=== PATIENT | female | born 1960 | race Caucasian/White ===

== ENCOUNTER 2024-03-27 18:23 | Emergency (ER) | payer OTHER ==
[~2024-03-27] VITALS: Ht 165.1 cm; Wt 58.2 kg
[2024-03-27 19:29] LABS: BASOPHILS % (AUTO) 0.7 % (0-1); EOSINOPHILS # (AUTO) 0.1 X10'3 (0-0.9); EOSINOPHILS % (AUTO) 1.6 % (0-6); HEMATOCRIT 46.3 % (35.0-45.0); HEMOGLOBIN 15.6 g/dl (12.0-16.0); LYMPHOCYTES # (AUTO) 1.8 X10'3 (1.1-4.8); LYMPHOCYTES % (AUTO) 28.8 % (21-51); MEAN CORPUSCULAR HEMOGLOBIN 31.7 PG (27.0-31.0); MEAN CORPUSCULAR HGB CONC 33.7 g/dL (33.0-36.5); MEAN PLATELET VOLUME 7.9 FL (7.4-10.4); MONOCYTES # (AUTO) 0.5 X10'3 (0-0.9); MONOCYTES % (AUTO) 7.5 % (2-12); NEUTROPHILS # (AUTO) 3.7 X10'3 (1.8-7.7); NEUTROPHILS % (AUTO) 61.4 % (42-75); PLATELET COUNT 176 X10'3 (140-440); RED BLOOD COUNT 4.92 X10'6 (4.20-5.60); RED CELL DISTRIBUTION WIDTH 13.1 % (11.5-14.5); WHITE BLOOD COUNT 6.1 X10'3 (4.5-11.0)
[2024-03-27 19:41] LABS: ALANINE AMINOTRANSFERASE 16 U/L (12-78); ALBUMIN 3.1 G/DL (3.4-5.0); ALKALINE PHOSPHATASE 75 IU/L (46-116); ANION GAP 6 (8-16); ASPARTATE AMINO TRANSFERASE 22 U/L (10-37); BILIRUBIN,TOTAL 0.7 MG/DL (0.1-1.0); BLOOD UREA NITROGEN 6 MG/DL (7-18); BUN/CREATININE RATIO 6.4 (10.0-20.0); CALCIUM 8.5 MG/DL (8.5-10.1); CHLORIDE 103 MMOL/L (99-107); CREATININE 0.94 MG/DL (0.40-0.90); GLUCOSE 92 MG/DL (70-104); LIPASE 19 U/L (16-77); POTASSIUM 3.7 MMOL/L (3.5-5.1); SODIUM 135 MMOL/L (135-145); TOTAL CARBON DIOXIDE 26.3 MMOL/L (24-32); TOTAL PROTEIN 6.1 G/DL (6.4-8.2); eCRCL 55 ML/MIN; eGFR 60 ML/MIN
[2024-03-27 21:37] VITALS: TEMP 97.9
[2024-03-27 22:47] VITALS: BP 126/68; PULSE 81; O2SAT 98
[2024-03-27] MEDS ORDERED: METO10TA3 PO (23:46)
[2024-03-27] MEDS: haloperidol lactate 5mg/ml inj IM ONE (23:48)
[2024-03-28 00:23] VITALS: RESP 18
== END 2024-03-28 00:25 | disposition home or self-care (01) ==
LOC: ER 18:23
DX: R11.15 Cyclical vomiting syndrome unrelated to migraine (principal); I10 Essential (primary) hypertension; F17.200 Nicotine dependence, unspecified, uncomplicated; Z85.038 Personal history of other malignant neoplasm of large intestine; Z88.1 Allergy status to other antibiotic agents
CPT/HCPCS: 36415; 80053; 83690; 85025; 96372; 99283; J1630

== ENCOUNTER 2024-04-20 19:32 | Inpatient (IN) | payer OTHER ==
[~2024-04-20] VITALS: Ht 165.1 cm; Wt 74.5 kg
[~2024-04-20 19:32] MED LIST: METO10TA3 PO
[2024-04-20 22:03] LABS: BASOPHILS % (AUTO) 1.1 % (0-1); EOSINOPHILS # (AUTO) 0.2 X10'3 (0-0.9); EOSINOPHILS % (AUTO) 3.4 % (0-6); HEMATOCRIT 37.2 % (35.0-45.0); HEMOGLOBIN 12.7 g/dl (12.0-16.0); LYMPHOCYTES # (AUTO) 1.2 X10'3 (1.1-4.8); LYMPHOCYTES % (AUTO) 25.9 % (21-51); MEAN CORPUSCULAR HEMOGLOBIN 32.7 PG (27.0-31.0); MEAN CORPUSCULAR HGB CONC 34.1 g/dL (33.0-36.5); MEAN CORPUSCULAR VOLUME 95.8 FL (78-98); MEAN PLATELET VOLUME 7.1 FL (7.4-10.4); MONOCYTES # (AUTO) 0.4 X10'3 (0-0.9); NEUTROPHILS # (AUTO) 2.8 X10'3 (1.8-7.7); NEUTROPHILS % (AUTO) 60.6 % (42-75); PLATELET COUNT 167 X10'3 (140-440); RED BLOOD COUNT 3.88 X10'6 (4.20-5.60); RED CELL DISTRIBUTION WIDTH 14.7 % (11.5-14.5); WHITE BLOOD COUNT 4.6 X10'3 (4.5-11.0)
[2024-04-20 22:29] LABS: ALANINE AMINOTRANSFERASE 14 U/L (12-78); ALBUMIN 2.2 G/DL (3.4-5.0); ALBUMIN/GLOBULIN RATIO 0.8 (1.1-1.5); ALKALINE PHOSPHATASE 67 IU/L (46-116); ANION GAP 11 (8-16); ASPARTATE AMINO TRANSFERASE 29 U/L (10-37); BILIRUBIN,TOTAL 0.6 MG/DL (0.1-1.0); BLOOD UREA NITROGEN 2 MG/DL (7-18); BUN/CREATININE RATIO 2.8 (10.0-20.0); CALCIUM 7.7 MG/DL (8.5-10.1); CHLORIDE 108 MMOL/L (99-107); CREATININE 0.72 MG/DL (0.40-0.90); GLUCOSE 68 MG/DL (70-104); SODIUM 141 MMOL/L (135-145); TOTAL CARBON DIOXIDE 21.7 MMOL/L (24-32); eCRCL 72 ML/MIN; eGFR 82 ML/MIN
[2024-04-20] MEDS: metoclopramide 5 mg/ml inj IV ONE (23:32)
[2024-04-20] MEDS: morphine 4 MG/ML inj SYRINge IV ONE (23:49)
[2024-04-21] VITALS (25 sets, daily range): BP systolic 86–140; BP diastolic 26–72; PULSE 90–119; RESP 13–27; TEMP 97.1–97.9; O2SAT 92–100
[2024-04-21] MEDS ORDERED: acetaminophen 325mg tablet PO PRN (00:30)
[2024-04-21] MEDS ORDERED: magnesium Cl slow-release 64mg tablet PO PRN (00:30)
[2024-04-21] MEDS ORDERED: magnesium sulf-water 4G/100mL 100 ML IV PRN (00:30)
[2024-04-21] MEDS ORDERED: mag hydrox/Alum hydrox/simeth 30ml oral suspension PO PRN (00:30)
[2024-04-21] MEDS ORDERED: potassium Cl 20 mEq SR tablet PO PRN ×2 (00:30)
[2024-04-21] MEDS ORDERED: magnesium sulf-water 2g/50mL 50 ML IV PRN (00:30)
[2024-04-21 00:44] LABS: BILIRUBIN,URINE NEGATIVE (Neg); CLARITY,URINE CLEAR (Clear); COLOR,URINE YELLOW (Yellow); GLUCOSE, URINE NEGATIVE (Neg); KETONES,URINE >=80 mg/dl (Neg); LEUKOCYTE ESTERASE ,URINE NEGATIVE (Neg); NITRITES, URINE NEGATIVE (Neg); OCCULT BLOOD,URINE MODERATE (Neg); PROTEIN,URINE TRACE mg/dl (Neg); UROBILINOGEN,URINE 0.2 E.U/dL (0.2-1.0)
[2024-04-21 00:49] LABS: UA COLLECTION TYPE CLN CATCH MIDSTREAM
[2024-04-21 00:50] LABS: BACTERIA,URINE NONE SEEN /HPF (Neg); SQUAMOUS EPITHELIAL CELL,UR FEW /LPF (FEW); WBC,URINE 0-4 /HPF (0-4)
[2024-04-21 00:55] LABS: URINE AMPHETAMINE SCREEN NEGATIVE (Neg); URINE BARBITUATE SCREEN NEGATIVE (Neg); URINE BENZODIAZEPINES SCREEN NEGATIVE (Neg); URINE CANNABINOID SCREEN NEGATIVE (Neg); URINE COCAINE SCREEN NEGATIVE (Neg); URINE METHADONE SCREEN NEGATIVE (Neg); URINE OPIATE SCREEN POSITIVE (Neg); URINE PHENCYCLIDINE SCREEN NEGATIVE (Neg)
[2024-04-21] MEDS: ringers solution, lacted 1,000 ML IV SCH ×2 (01:10→17:40)
[2024-04-21 01:18] LABS: LIPASE 24 U/L (16-77)
[2024-04-21] MEDS: ondansetron/PF 4mg/2ml inj IV PRN ×2 (06:03→19:48)
[2024-04-21] MEDS: K and/or MAG REPLACEMENT MC SCH (07:01)
[2024-04-21] MEDS: docusate sod 100mg capsule PO SCH (07:01)
[2024-04-21] MEDS: enoxaparin 40mg/0.4ml syringe SUBCUT SCH (07:51)
[2024-04-21] MEDS: acetaminophen 325mg tablet PO PRN (08:49)
[2024-04-21] MEDS: normal saline 1000ml 1,000 ML IV SCH (12:47)
[2024-04-21 13:57] LABS: PRE OP INR 1.2 INR; PRE OP PROTIME 12.8 SECONDS (9.0-12.0)
[2024-04-21] MEDS: dextrose 50%-water 50ml dispensing syringe IV ONE ×2 (15:16→15:22)
[2024-04-21] MEDS ORDERED: phenazopyridine 100mg tablet PO PRN (16:25)
[2024-04-21] MEDS ORDERED: iohexol 300 MG/1 ML 50ml polymer ONE (16:27)
[2024-04-21] MEDS ORDERED: morphine 4 MG/ML inj SYRINge IV PRN (16:30)
[2024-04-21] MEDS ORDERED: morphine 2 MG/ML inj. syringe IV PRN (16:30)
[2024-04-21] MEDS ORDERED: meperidine/PF 25mg/ml syringe IV PRN ×3 (16:30)
[2024-04-21] MEDS ORDERED: proCHLORperazine 10 MG/2 ml inj IV PRN (16:30)
[2024-04-21] MEDS ORDERED: fentaNYL/PF 50MCG/1 ML 2ML syringe ONE (16:34)
[2024-04-21] MEDS ORDERED: midazolam 1 mg/ML 2ml injection ONE (16:34)
[2024-04-21] MEDS ORDERED: propofol inj 20 ML IV ONE (16:34)
[2024-04-21] MEDS ORDERED: sevoflurane 250ml liquid IH ONE (16:44)
[2024-04-21] MEDS ORDERED: ceFAZolin 1000mg inj ONE ×2 (16:55)
[2024-04-21] MEDS ORDERED: morphine/NS 1 mg/ml 50ml PCA 50 ML IV ONE (21:10)
[2024-04-21] MEDS: morphine 2 MG/ML inj. syringe IV PRN (22:32)
[2024-04-22] VITALS (8 sets, daily range): BP systolic 81–127; BP diastolic 40–67; PULSE 105–129; RESP 13–18; TEMP 98.1–103.1; O2SAT 93–100
[2024-04-22] MEDS: ceFAZolin/D5W- 1GM premix 50 ML IV SCH (00:34)
[2024-04-22] MEDS ORDERED: glucagon, human recombinant 1mg kit SUBCUT PRN (06:10)
[2024-04-22] MEDS ORDERED: DEXTROSE 15 GM of carb/4 tabs (each vial/BOTTLE has 4 tablets) PO PRN ×2 (06:10)
[2024-04-22 06:12] LABS: BASOPHILS % (AUTO) 0.4 % (0-1); EOSINOPHILS # (AUTO) 0.1 X10'3 (0-0.9); EOSINOPHILS % (AUTO) 3.3 % (0-6); HEMOGLOBIN 13.1 g/dl (12.0-16.0); LYMPHOCYTES # (AUTO) 0.6 X10'3 (1.1-4.8); LYMPHOCYTES % (AUTO) 13.2 % (21-51); MEAN CORPUSCULAR HEMOGLOBIN 32.8 PG (27.0-31.0); MEAN CORPUSCULAR HGB CONC 34.4 g/dL (33.0-36.5); MEAN CORPUSCULAR VOLUME 95.4 FL (78-98); MEAN PLATELET VOLUME 7.3 FL (7.4-10.4); MONOCYTES # (AUTO) 0.3 X10'3 (0-0.9); MONOCYTES % (AUTO) 6.9 % (2-12); NEUTROPHILS # (AUTO) 3.2 X10'3 (1.8-7.7); NEUTROPHILS % (AUTO) 76.2 % (42-75); PLATELET COUNT 148 X10'3 (140-440); RED BLOOD COUNT 3.98 X10'6 (4.20-5.60); RED CELL DISTRIBUTION WIDTH 14.6 % (11.5-14.5); WHITE BLOOD COUNT 4.2 X10'3 (4.5-11.0)
[2024-04-22] MEDS: dextrose 50%-water 50ml dispensing syringe IV PRN ×2 (06:14→21:47)
[2024-04-22 06:33] LABS: ALBUMIN 2.1 G/DL (3.4-5.0); ANION GAP 15 (8-16); BLOOD UREA NITROGEN 1 MG/DL (7-18); BUN/CREATININE RATIO 1.2 (10.0-20.0); CALCIUM 8.2 MG/DL (8.5-10.1); CHLORIDE 108 MMOL/L (99-107); CREATININE 0.82 MG/DL (0.40-0.90); GLUCOSE 71 MG/DL (70-104); MAGNESIUM 1.5 MG/DL (1.5-2.4); SODIUM 142 MMOL/L (135-145); TOTAL CARBON DIOXIDE 18.8 MMOL/L (24-32); eCRCL 63 ML/MIN; eGFR 70 ML/MIN
[2024-04-22 06:52] LABS: POTASSIUM 2.8 MMOL/L (3.5-5.1)
[2024-04-22] MEDS ORDERED: acetaminophen 325mg rectal suppository RC PRN ×2 (11:44)
[2024-04-22] MEDS: acetaminophen 325mg rectal suppository RC PRN (12:01)
[2024-04-22] MEDS: potassium Cl 40MEQ/1/2NS 520ml 520 ML IV PRN (12:24)
[2024-04-22 14:19] LABS: BASOPHILS % (AUTO) 0.5 % (0-1); EOSINOPHILS # (AUTO) 0.1 X10'3 (0-0.9); EOSINOPHILS % (AUTO) 1.9 % (0-6); HEMATOCRIT 34.5 % (35.0-45.0); HEMOGLOBIN 11.8 g/dl (12.0-16.0); LYMPHOCYTES # (AUTO) 0.6 X10'3 (1.1-4.8); MEAN CORPUSCULAR HEMOGLOBIN 32.4 PG (27.0-31.0); MEAN CORPUSCULAR HGB CONC 34.2 g/dL (33.0-36.5); MEAN CORPUSCULAR VOLUME 94.9 FL (78-98); MEAN PLATELET VOLUME 7.3 FL (7.4-10.4); MONOCYTES # (AUTO) 0.5 X10'3 (0-0.9); MONOCYTES % (AUTO) 10.6 % (2-12); NEUTROPHILS # (AUTO) 3.4 X10'3 (1.8-7.7); PLATELET COUNT 127 X10'3 (140-440); RED BLOOD COUNT 3.63 X10'6 (4.20-5.60); RED CELL DISTRIBUTION WIDTH 14.9 % (11.5-14.5); WHITE BLOOD COUNT 4.5 X10'3 (4.5-11.0)
[2024-04-22 14:32] LABS: ALBUMIN 1.9 G/DL (3.4-5.0); ANION GAP 10 (8-16); BLOOD UREA NITROGEN 1 MG/DL (7-18); CALCIUM 7.7 MG/DL (8.5-10.1); CHLORIDE 111 MMOL/L (99-107); CREATININE 1.04 MG/DL (0.40-0.90); GLUCOSE 79 MG/DL (70-104); SODIUM 144 MMOL/L (135-145); TOTAL CARBON DIOXIDE 22.7 MMOL/L (24-32); eCRCL 50 ML/MIN; eGFR 54 ML/MIN
[2024-04-22 14:46] LABS: POTASSIUM 2.3 MMOL/L (3.5-5.1)
[2024-04-22] MEDS ORDERED: iohexol 300mg/ml 100ml inj. ONE (17:05)
[2024-04-22] MEDS: dextrose 5%-water 1,000 ML IV SCH (20:26)
[2024-04-22] MEDS ORDERED: dextrose 5%-water 1,000 ML IV SCH (20:30)
[2024-04-22] MEDS: normal saline 1000ml 1,000 ML IVB ONE (20:30)
[2024-04-22] MEDS: CefTRIAXone/D5W-Rocephin 1gm 50 ML IV SCH (22:05)
[2024-04-22] MEDS: dextrose 5%-1/2 normal saline 1,000 ML IV SCH (22:38)
[2024-04-23] VITALS (9 sets, daily range): BP systolic 94–125; BP diastolic 41–54; PULSE 86–123; RESP 13–26; TEMP 97.3–99.4; O2SAT 91–99
[2024-04-23 07:57] LABS: BASOPHILS % (AUTO) 0.9 % (0-1); EOSINOPHILS # (AUTO) 0.1 X10'3 (0-0.9); EOSINOPHILS % (AUTO) 2.9 % (0-6); HEMATOCRIT 34.7 % (35.0-45.0); LYMPHOCYTES # (AUTO) 0.6 X10'3 (1.1-4.8); LYMPHOCYTES % (AUTO) 19.5 % (21-51); MEAN CORPUSCULAR HEMOGLOBIN 32.8 PG (27.0-31.0); MEAN CORPUSCULAR HGB CONC 34.6 g/dL (33.0-36.5); MEAN CORPUSCULAR VOLUME 94.8 FL (78-98); MEAN PLATELET VOLUME 7.7 FL (7.4-10.4); MONOCYTES # (AUTO) 0.5 X10'3 (0-0.9); MONOCYTES % (AUTO) 18.1 % (2-12); NEUTROPHILS # (AUTO) 1.8 X10'3 (1.8-7.7); NEUTROPHILS % (AUTO) 58.6 % (42-75); PLATELET COUNT 106 X10'3 (140-440); RED BLOOD COUNT 3.66 X10'6 (4.20-5.60); RED CELL DISTRIBUTION WIDTH 14.8 % (11.5-14.5)
[2024-04-23 08:14] LABS: ALBUMIN 1.8 G/DL (3.4-5.0); ANION GAP 7 (8-16); BLOOD UREA NITROGEN 1 MG/DL (7-18); BUN/CREATININE RATIO 1.1 (10.0-20.0); CALCIUM 7.5 MG/DL (8.5-10.1); CHLORIDE 112 MMOL/L (99-107); CREATININE 0.94 MG/DL (0.40-0.90); GLUCOSE 144 MG/DL (70-104); MAGNESIUM 1.4 MG/DL (1.5-2.4); SODIUM 142 MMOL/L (135-145); TOTAL CARBON DIOXIDE 23.5 MMOL/L (24-32); eCRCL 55 ML/MIN; eGFR 60 ML/MIN
[2024-04-23 08:28] LABS: POTASSIUM 2.7 MMOL/L (3.5-5.1)
[2024-04-23] MEDS: normal saline 500ml IV soln 500 ML IV SCH (09:38)
[2024-04-23] MEDS: dextrose 5%-1/2 normal saline 1,000 ML IV SCH (09:38)
[2024-04-23] MEDS: normal saline 1000ml 1,000 ML IV SCH (10:33)
[2024-04-23] MEDS: pantoprazole 40MG/NS 100ML BAG 100 ML IV SCH (11:55)
[2024-04-24] VITALS (8 sets, daily range): BP systolic 79–104; BP diastolic 38–86; PULSE 79–132; RESP 18–38; TEMP 97.6–99.8; O2SAT 92–97
[2024-04-24] MEDS: dextrose 5%-water 1,000 ML IV SCH (02:13)
[2024-04-24] MEDS ORDERED: potassium Cl 20 mEq SR tablet PO PRN ×2 (04:30)
[2024-04-24] MEDS ORDERED: magnesium Cl slow-release 64mg tablet PO PRN (04:30)
[2024-04-24 07:30] LABS: ALBUMIN 1.7 G/DL (3.4-5.0); ANION GAP 7 (8-16); BLOOD UREA NITROGEN 1 MG/DL (7-18); BUN/CREATININE RATIO 1.3 (10.0-20.0); CALCIUM 7.4 MG/DL (8.5-10.1); CHLORIDE 109 MMOL/L (99-107); CREATININE 0.76 MG/DL (0.40-0.90); GLUCOSE 91 MG/DL (70-104); MAGNESIUM 1.3 MG/DL (1.5-2.4); SODIUM 139 MMOL/L (135-145); TOTAL CARBON DIOXIDE 22.6 MMOL/L (24-32); eCRCL 68 ML/MIN; eGFR 77 ML/MIN
[2024-04-24 07:34] LABS: POTASSIUM 3.2 MMOL/L (3.5-5.1)
[2024-04-24] MEDS: K and/or MAG REPLACEMENT MC SCH (08:00)
[2024-04-24] MEDS: potassium Cl 40MEQ/1/2NS 520ml 520 ML IV PRN (08:47)
[2024-04-24 09:07] LABS: BASOPHILS % (AUTO) 1.4 % (0-1); EOSINOPHILS # (AUTO) 0.2 X10'3 (0-0.9); EOSINOPHILS % (AUTO) 4.6 % (0-6); HEMATOCRIT 32.2 % (35.0-45.0); HEMOGLOBIN 11.3 g/dl (12.0-16.0); LYMPHOCYTES # (AUTO) 0.9 X10'3 (1.1-4.8); MEAN CORPUSCULAR HEMOGLOBIN 32.7 PG (27.0-31.0); MEAN CORPUSCULAR HGB CONC 35.1 g/dL (33.0-36.5); MEAN CORPUSCULAR VOLUME 93.1 FL (78-98); MEAN PLATELET VOLUME 7.4 FL (7.4-10.4); MONOCYTES # (AUTO) 0.5 X10'3 (0-0.9); NEUTROPHILS # (AUTO) 1.9 X10'3 (1.8-7.7); PLATELET COUNT 92 X10'3 (140-440); RED BLOOD COUNT 3.46 X10'6 (4.20-5.60); RED CELL DISTRIBUTION WIDTH 15.1 % (11.5-14.5); WHITE BLOOD COUNT 3.5 X10'3 (4.5-11.0)
[2024-04-24] MEDS: normal saline 500ml IV soln 500 ML IV ONE (16:56)
[2024-04-24] MEDS ORDERED: iohexol 300mg/ml 100ml inj. ONE (18:04)
[2024-04-24] MEDS ORDERED: morphine 2 MG/ML inj. syringe IV PRN (19:30)
[2024-04-24] MEDS ORDERED: furosemide 20 MG/2 ML vial IV SCH (19:30)
[2024-04-24] MEDS: PERFLUTREN PROTEIN-A MICROSPHR (Optison) 0.22 MG/ML 3ML VIAL IV ONE (20:52)
[2024-04-24] MEDS: magnesium sulf-water 4G/100mL 100 ML IV PRN (21:34)
[2024-04-24] MEDS: furosemide 20 MG/2 ML vial IV SCH (21:41)
[2024-04-24] MEDS: metroNIDAZOLE-Flagyl 500mg/NS 100 ML IV SCH (23:15)
[2024-04-25] VITALS (9 sets, daily range): BP systolic 74–125; BP diastolic 37–97; PULSE 17–126; RESP 20–40; TEMP 97.3–101.8; O2SAT 90–97
[2024-04-25] MEDS: magnesium sulf-water 2g/50mL 50 ML IV PRN (01:39)
[2024-04-25] MEDS: normal saline 1000ml 1,000 ML IV ONE (06:40)
[2024-04-25 07:04] LABS: BASOPHILS % (AUTO) 0.7 % (0-1); EOSINOPHILS # (AUTO) 0.1 X10'3 (0-0.9); EOSINOPHILS % (AUTO) 3.1 % (0-6); HEMATOCRIT 32.5 % (35.0-45.0); HEMOGLOBIN 11.3 g/dl (12.0-16.0); LYMPHOCYTES # (AUTO) 0.8 X10'3 (1.1-4.8); LYMPHOCYTES % (AUTO) 24.2 % (21-51); MEAN CORPUSCULAR HEMOGLOBIN 32.9 PG (27.0-31.0); MEAN CORPUSCULAR HGB CONC 34.8 g/dL (33.0-36.5); MEAN CORPUSCULAR VOLUME 94.5 FL (78-98); MEAN PLATELET VOLUME 8.4 FL (7.4-10.4); MONOCYTES # (AUTO) 0.6 X10'3 (0-0.9); MONOCYTES % (AUTO) 18.8 % (2-12); NEUTROPHILS # (AUTO) 1.7 X10'3 (1.8-7.7); NEUTROPHILS % (AUTO) 53.2 % (42-75); PLATELET COUNT 89 X10'3 (140-440); RED BLOOD COUNT 3.44 X10'6 (4.20-5.60); RED CELL DISTRIBUTION WIDTH 15.2 % (11.5-14.5); WHITE BLOOD COUNT 3.1 X10'3 (4.5-11.0)
[2024-04-25 07:17] LABS: ALBUMIN 1.6 G/DL (3.4-5.0); ANION GAP 6 (8-16); BLOOD UREA NITROGEN 2 MG/DL (7-18); BUN/CREATININE RATIO 1.9 (10.0-20.0); CALCIUM 7.2 MG/DL (8.5-10.1); CHLORIDE 107 MMOL/L (99-107); CREATININE 1.05 MG/DL (0.40-0.90); GLUCOSE 106 MG/DL (70-104); MAGNESIUM 2.8 MG/DL (1.5-2.4); PRO BRAIN NATRIURETIC PEPTIDE 785 PG/ML (0-125); SODIUM 137 MMOL/L (135-145); TOTAL CARBON DIOXIDE 23.7 MMOL/L (24-32); eCRCL 49 ML/MIN; eGFR 53 ML/MIN
[2024-04-25 07:21] LABS: POTASSIUM 2.6 MMOL/L (3.5-5.1)
[2024-04-25] MEDS: potassium CL 20mEq in D5-1/2NS 1,000 ML IV SCH (11:59)
[2024-04-26] VITALS (7 sets, daily range): BP systolic 75–108; BP diastolic 37–56; PULSE 82–125; RESP 12–30; TEMP 96.7–98.6; O2SAT 90–95
[2024-04-26 04:07] LABS: EOSINOPHILS # (AUTO) 0.3 X10'3 (0-0.9); HEMATOCRIT 32.6 % (35.0-45.0); HEMOGLOBIN 11.4 g/dl (12.0-16.0); MEAN CORPUSCULAR HEMOGLOBIN 32.5 PG (27.0-31.0); NEUTROPHILS # (AUTO) 1.4 X10'3 (1.8-7.7); RED BLOOD COUNT 3.51 X10'6 (4.20-5.60)
[2024-04-26 04:09] LABS: BASOPHILS % (AUTO) 1.2 % (0-1); EOSINOPHILS % (AUTO) 8.8 % (0-6); LYMPHOCYTES # (AUTO) 0.8 X10'3 (1.1-4.8); LYMPHOCYTES % (AUTO) 26.3 % (21-51); MEAN CORPUSCULAR VOLUME 92.8 FL (78-98); MEAN PLATELET VOLUME 8.7 FL (7.4-10.4); MONOCYTES # (AUTO) 0.5 X10'3 (0-0.9); MONOCYTES % (AUTO) 16.4 % (2-12); NEUTROPHILS % (AUTO) 47.3 % (42-75); PLATELET COUNT 79 X10'3 (140-440); RED CELL DISTRIBUTION WIDTH 15.1 % (11.5-14.5)
[2024-04-26 04:11] LABS: ALBUMIN 1.6 G/DL (3.4-5.0); ANION GAP 7 (8-16); BLOOD UREA NITROGEN 1 MG/DL (7-18); BUN/CREATININE RATIO 1.2 (10.0-20.0); CALCIUM 6.6 MG/DL (8.5-10.1); CHLORIDE 107 MMOL/L (99-107); CREATININE 0.85 MG/DL (0.40-0.90); GLUCOSE 151 MG/DL (70-104); MAGNESIUM 1.8 MG/DL (1.5-2.4); SODIUM 140 MMOL/L (135-145); TOTAL CARBON DIOXIDE 25.6 MMOL/L (24-32); eCRCL 61 ML/MIN; eGFR 68 ML/MIN
[2024-04-26 04:48] LABS: POTASSIUM 2.7 MMOL/L (3.5-5.1)
[2024-04-26] MEDS: ziprasidone IM 20mg inj **IM only IM ONE (12:40)
[2024-04-26] MEDS ORDERED: vancomycin inj 1,000 MG in normal saline 250ml IV soln 250 ML IV ONE (15:15)
[2024-04-26] MEDS: furosemide 20 MG/2 ML vial IV ONE (15:15)
[2024-04-26] MEDS: albumin (human) 25% 100 ML IV solution IV ONE (19:57)
[2024-04-26] MEDS: VANCOMYCIN 1,500MG in normal saline IV soln 300 ML IV ONE (21:00)
[2024-04-26] MEDS: VANCOMYCIN 1GM 200ML H20 (PEG) 200 ML IV SCH (21:23)
[2024-04-26 22:53] LABS: BASOPHILS % (AUTO) 1.6 % (0-1); EOSINOPHILS # (AUTO) 0.1 X10'3 (0-0.9); HEMATOCRIT 28.6 % (35.0-45.0); HEMOGLOBIN 9.5 g/dl (12.0-16.0); LYMPHOCYTES # (AUTO) 0.5 X10'3 (1.1-4.8); LYMPHOCYTES % (AUTO) 20.8 % (21-51); MEAN CORPUSCULAR HEMOGLOBIN 32.3 PG (27.0-31.0); MEAN CORPUSCULAR HGB CONC 33.2 g/dL (33.0-36.5); MEAN CORPUSCULAR VOLUME 97.3 FL (78-98); MEAN PLATELET VOLUME 8.7 FL (7.4-10.4); MONOCYTES # (AUTO) 0.4 X10'3 (0-0.9); MONOCYTES % (AUTO) 17.6 % (2-12); NEUTROPHILS # (AUTO) 1.4 X10'3 (1.8-7.7); RED BLOOD COUNT 2.94 X10'6 (4.20-5.60); RED CELL DISTRIBUTION WIDTH 16.1 % (11.5-14.5); WHITE BLOOD COUNT 2.5 X10'3 (4.5-11.0)
[2024-04-26 23:07] LABS: PLATELET COUNT 41 X10'3 (140-440)
[2024-04-26 23:10] LABS: ALANINE AMINOTRANSFERASE 46 U/L (12-78); ALBUMIN 2.6 G/DL (3.4-5.0); ALBUMIN/GLOBULIN RATIO 1.4 (1.1-1.5); ALKALINE PHOSPHATASE 42 IU/L (46-116); ANION GAP 7 (8-16); ASPARTATE AMINO TRANSFERASE 138 U/L (10-37); BILIRUBIN,TOTAL 0.8 MG/DL (0.1-1.0); BLOOD UREA NITROGEN 2 MG/DL (7-18); BUN/CREATININE RATIO 2.6 (10.0-20.0); CALCIUM 6.8 MG/DL (8.5-10.1); CHLORIDE 108 MMOL/L (99-107); CREATININE 0.77 MG/DL (0.40-0.90); GLUCOSE 124 MG/DL (70-104); MAGNESIUM 1.8 MG/DL (1.5-2.4); POTASSIUM 3.7 MMOL/L (3.5-5.1); SODIUM 139 MMOL/L (135-145); TOTAL CARBON DIOXIDE 23.6 MMOL/L (24-32); TOTAL PROTEIN 4.4 G/DL (6.4-8.2); eCRCL 67 ML/MIN; eGFR 76 ML/MIN
[2024-04-27] VITALS (22 sets, daily range): BP systolic 76–119; BP diastolic 25–60; PULSE 87–109; RESP 18–32; TEMP 96; O2SAT 93–100
[2024-04-27] MEDS: pantoprazole 40 MG vial IV SCH (03:38)
[2024-04-27 06:45] LABS: HEMATOCRIT 28.9 % (35.0-45.0); MEAN PLATELET VOLUME 9.2 FL (7.4-10.4); PLATELET COUNT 64 X10'3 (140-440)
[2024-04-27 06:47] LABS: HEMOGLOBIN 9.7 g/dl (12.0-16.0); MEAN CORPUSCULAR HGB CONC 33.8 g/dL (33.0-36.5); MEAN CORPUSCULAR VOLUME 94.9 FL (78-98); RED BLOOD COUNT 3.04 X10'6 (4.20-5.60); RED CELL DISTRIBUTION WIDTH 15.9 % (11.5-14.5); WHITE BLOOD COUNT 3.7 X10'3 (4.5-11.0)
[2024-04-27 07:02] LABS: ALANINE AMINOTRANSFERASE 46 U/L (12-78); ALBUMIN 2.2 G/DL (3.4-5.0); ALBUMIN/GLOBULIN RATIO 1.2 (1.1-1.5); ALKALINE PHOSPHATASE 42 IU/L (46-116); ANION GAP 4 (8-16); ASPARTATE AMINO TRANSFERASE 120 U/L (10-37); BASOPHILS % (AUTO) 0.5 % (0-1); BILIRUBIN,TOTAL 0.5 MG/DL (0.1-1.0); BLOOD UREA NITROGEN 2 MG/DL (7-18); BUN/CREATININE RATIO 3.2 (10.0-20.0); CALCIUM 7.2 MG/DL (8.5-10.1); CHLORIDE 107 MMOL/L (99-107); CREATININE 0.62 MG/DL (0.40-0.90); EOSINOPHILS # (AUTO) 0.2 X10'3 (0-0.9); EOSINOPHILS % (AUTO) 6.2 % (0-6); GLUCOSE 178 MG/DL (70-104); LYMPHOCYTES # (AUTO) 0.7 X10'3 (1.1-4.8); LYMPHOCYTES % (AUTO) 19.5 % (21-51); MONOCYTES # (AUTO) 0.6 X10'3 (0-0.9); MONOCYTES % (AUTO) 15.7 % (2-12); NEUTROPHILS # (AUTO) 2.2 X10'3 (1.8-7.7); NEUTROPHILS % (AUTO) 58.1 % (42-75); POTASSIUM 3.7 MMOL/L (3.5-5.1); SODIUM 137 MMOL/L (135-145); TOTAL CARBON DIOXIDE 26.5 MMOL/L (24-32); TOTAL PROTEIN 4.1 G/DL (6.4-8.2); eCRCL 84 ML/MIN; eGFR > 90 ML/MIN
[2024-04-27] MEDS ORDERED: rocuronium 10mg/ml inj IV ONE (08:00)
[2024-04-27 09:51] LABS: ABG BASE EXCESS -4.8 mmol/L (-2.0-3.0); ABG HCO3 24.6 mmol/L (21.0-28.0); ABG OXYGEN SATURATION 91.5 % (94.0-98.0); ABG PCO2 (T) 69.9 mmHg (32.0-45.0); ABG PH (T) 7.165 (7.350-7.450); ABG PO2 (T) 67.3 mmHg (83.0-108.0); ALLEN'S TEST Modified; FCOHb 0.5 % (0.5-1.5); FHHb 8.4 % (0.0-5.0); FLOW 15 L/min; FMetHb 0.3 % (0.0-1.5); FO2Hb 90.8 % (94.0-98.0); MODE MASK - NRB
[2024-04-27] MEDS: fentaNYL/PF 50MCG/1 ML 2ML syringe ONE (10:53)
[2024-04-27] MEDS: FENTANYL-0.9 % NACL/PF 100 ML IV SCH (11:26)
[2024-04-27] MEDS: propofol 1000mg/100ml bottle 100 ML IV SCH (11:26)
[2024-04-27] MEDS: methylPREDNISolone sod succ 125mg/2ml vial IV SCH ×2 (11:44→19:53)
[2024-04-27] MEDS: ringers solution, lacted 1,000 ML IV ONE (11:46)
[2024-04-27] MEDS: MEROPENEM 1GM/NACL 50ML IVPB 50 ML IV SCH (12:05)
[2024-04-27] MEDS: NORepinephrine 8mg/ 250ml NS 250 ML IV SCH ×2 (12:10→16:34)
[2024-04-27 12:14] LABS: ABG BASE EXCESS -4.2 mmol/L (-2.0-3.0); ABG HCO3 24.3 mmol/L (21.0-28.0); ABG OXYGEN SATURATION 98.4 % (94.0-98.0); ABG PCO2 (T) 56.2 mmHg (32.0-45.0); ABG PH (T) 7.239 (7.350-7.450); ABG PO2 (T) 112.3 mmHg (83.0-108.0); ALLEN'S TEST POSITIVE; FCOHb 0.1 % (0.5-1.5); FHHb 1.6 % (0.0-5.0); FMetHb 0.3 % (0.0-1.5); MODE VENT - AC; PATIENT TEMPERATURE 34.3; RESPIRATORY RATE 18 b/min; TIDAL VOLUME 350 mL; TOTAL HEMOGLOBIN 10.1 G/dl (12.0-16.0)
[2024-04-27] MEDS: heparin, porcine 5000 units/ml vial SQ SCH (19:53)
[2024-04-28] VITALS (44 sets, daily range): BP systolic 91–129; BP diastolic 30–75; PULSE 73–124; RESP 17–30; O2SAT 90–98
[2024-04-28] MEDS ORDERED: glucagon, human recombinant 1mg kit SUBCUT PRN (00:55)
[2024-04-28] MEDS ORDERED: dextrose 50%-water 50ml dispensing syringe IV PRN ×2 (00:55)
[2024-04-28] MEDS ORDERED: DEXTROSE 15 GM of carb/4 tabs (each vial/BOTTLE has 4 tablets) PO PRN ×2 (00:55)
[2024-04-28 02:35] LABS: BASOPHILS % (AUTO) 0.1 % (0-1); EOSINOPHILS % (AUTO) 0 % (0-6); HEMATOCRIT 33.2 % (35.0-45.0); HEMOGLOBIN 11.3 g/dl (12.0-16.0); LYMPHOCYTES # (AUTO) 0.3 X10'3 (1.1-4.8); LYMPHOCYTES % (AUTO) 4.5 % (21-51); MEAN CORPUSCULAR HEMOGLOBIN 32.2 PG (27.0-31.0); MEAN CORPUSCULAR HGB CONC 33.9 g/dL (33.0-36.5); MEAN CORPUSCULAR VOLUME 94.9 FL (78-98); MEAN PLATELET VOLUME 9.8 FL (7.4-10.4); MONOCYTES # (AUTO) 0.5 X10'3 (0-0.9); MONOCYTES % (AUTO) 6.3 % (2-12); NEUTROPHILS # (AUTO) 6.8 X10'3 (1.8-7.7); NEUTROPHILS % (AUTO) 89.1 % (42-75); PLATELET COUNT 93 X10'3 (140-440); RED CELL DISTRIBUTION WIDTH 16.2 % (11.5-14.5); WHITE BLOOD COUNT 7.7 X10'3 (4.5-11.0)
[2024-04-28] MEDS: vasopressin inj. 40 UNIT in normal saline 50ml IV soln 38 ML IV SCH (02:40)
[2024-04-28] MEDS: INSULIN LISPRO 100 UNIT/ML INSULN.PEN MULTI-DOSE SQ SCH (02:51)
[2024-04-28] MEDS: VANCOMYCIN LEVEL IV ONE (02:55)
[2024-04-28 03:06] LABS: ALANINE AMINOTRANSFERASE 44 U/L (12-78); ALBUMIN 2.2 G/DL (3.4-5.0); ALBUMIN/GLOBULIN RATIO 0.8 (1.1-1.5); ALKALINE PHOSPHATASE 53 IU/L (46-116); ANION GAP 5 (8-16); ASPARTATE AMINO TRANSFERASE 95 U/L (10-37); BILIRUBIN,TOTAL 0.6 MG/DL (0.1-1.0); BLOOD UREA NITROGEN 4 MG/DL (7-18); BUN/CREATININE RATIO 5.1 (10.0-20.0); CALCIUM 7.4 MG/DL (8.5-10.1); CHLORIDE 109 MMOL/L (99-107); CREATININE 0.79 MG/DL (0.40-0.90); GLUCOSE 206 MG/DL (70-104); MAGNESIUM 1.9 MG/DL (1.5-2.4); PHOSPHORUS 1.3 MG/DL (2.3-4.5); POTASSIUM 3.9 MMOL/L (3.5-5.1); SODIUM 141 MMOL/L (135-145); TOTAL CARBON DIOXIDE 26.8 MMOL/L (24-32); TOTAL PROTEIN 4.8 G/DL (6.4-8.2); TRIGLYCERIDES 91 MG/DL (20-135); VANCOMYCIN,TROUGH 4.2 ug/mL (10.0-20.0); eCRCL 66 ML/MIN; eGFR 74 ML/MIN
[2024-04-28 03:41] LABS: ABG BASE EXCESS -3.3 mmol/L (-2.0-3.0); ABG HCO3 24.2 mmol/L (21.0-28.0); ABG OXYGEN SATURATION 91.7 % (94.0-98.0); ABG PCO2 (T) 53.4 mmHg (32.0-45.0); ABG PH (T) 7.272 (7.350-7.450); ALLEN'S TEST Modified; FCOHb 0.5 % (0.5-1.5); FHHb 8.2 % (0.0-5.0); FMetHb 0.3 % (0.0-1.5); MODE ac/prvc; PATIENT TEMPERATURE 36.6; PEEP 5 cm H2O; RESPIRATORY RATE 20 b/min; TIDAL VOLUME 350 mL; TOTAL HEMOGLOBIN 11.9 G/dl (12.0-16.0)
[2024-04-28] MEDS ORDERED: potassium Cl 20 mEq SR tablet PO PRN ×2 (04:15)
[2024-04-28] MEDS ORDERED: magnesium sulf-water 2g/50mL 50 ML IV PRN (04:15)
[2024-04-28] MEDS ORDERED: magnesium sulf-water 4G/100mL 100 ML IV PRN (04:15)
[2024-04-28] MEDS: potassium phosphate inj 15 MMOL in normal saline 250ml IV soln 250 ML IV ONE (05:26)
[2024-04-28] MEDS ORDERED: INSULIN LISPRO 100 UNIT/ML INSULN.PEN MULTI-DOSE SQ SCH (07:00)
[2024-04-28] MEDS ORDERED: albumin (human) 25% 100ml IV 100 ML in normal saline 500ml IV soln 400 ML IV SCH (08:00)
[2024-04-28 08:04] LABS: ABG BASE EXCESS -4.4 mmol/L (-2.0-3.0); ABG OXYGEN SATURATION 90.8 % (94.0-98.0); ABG PCO2 (T) 39.2 mmHg (32.0-45.0); ABG PH (T) 7.346 (7.350-7.450); ABG PO2 (T) 53.1 mmHg (83.0-108.0); ALLEN'S TEST POSITIVE; FCOHb 0.5 % (0.5-1.5); FHHb 9.1 % (0.0-5.0); FMetHb 0.3 % (0.0-1.5); FO2Hb 90.1 % (94.0-98.0); MODE VENT - PRVC; PATIENT TEMPERATURE 36.6; PEEP 5 cm H2O; RESPIRATORY RATE 24 b/min; TIDAL VOLUME 350 mL; TOTAL HEMOGLOBIN 12.1 G/dl (12.0-16.0)
[2024-04-28] MEDS ORDERED: UNABLE TO OBTAIN (11:11)
[2024-04-28] MEDS: ipratropium/albuterol 3ml nebule NEB SCH (11:23)
[2024-04-28] MEDS: ringers solution, lacted 1,000 ML IV SCH (13:14)
[2024-04-28] MEDS: mineral oil/petrolatum ophthal oint EACHEYE SCH (13:58)
[2024-04-28] MEDS: erythromycin base 250mg tablet PO SCH (15:01)
[2024-04-28] MEDS: ringers solution, lacted 1,000 ML IV ONE (16:21)
[2024-04-28] MEDS: furosemide 40mg/4ml inj IV ONE (23:42)
[2024-04-29] VITALS (48 sets, daily range): BP systolic 70–122; BP diastolic 42–83; PULSE 120–132; RESP 20–32; O2SAT 91–100
[2024-04-29] MEDS: INSULIN LISPRO 100 UNIT/ML INSULN.PEN MULTI-DOSE SQ SCH (02:08)
[2024-04-29 02:58] LABS: BASOPHILS % (AUTO) 0.2 % (0-1); EOSINOPHILS % (AUTO) 0 % (0-6); HEMATOCRIT 32.3 % (35.0-45.0); LYMPHOCYTES # (AUTO) 0.4 X10'3 (1.1-4.8); LYMPHOCYTES % (AUTO) 5.2 % (21-51); MEAN CORPUSCULAR HEMOGLOBIN 32.4 PG (27.0-31.0); MEAN CORPUSCULAR VOLUME 95.3 FL (78-98); MEAN PLATELET VOLUME 10.9 FL (7.4-10.4); MONOCYTES # (AUTO) 0.8 X10'3 (0-0.9); MONOCYTES % (AUTO) 9.4 % (2-12); NEUTROPHILS # (AUTO) 7.3 X10'3 (1.8-7.7); NEUTROPHILS % (AUTO) 85.2 % (42-75); PLATELET COUNT 118 X10'3 (140-440); RED BLOOD COUNT 3.38 X10'6 (4.20-5.60); RED CELL DISTRIBUTION WIDTH 16.5 % (11.5-14.5); WHITE BLOOD COUNT 8.5 X10'3 (4.5-11.0)
[2024-04-29 03:24] LABS: ALANINE AMINOTRANSFERASE 146 U/L (12-78); ALBUMIN 2.1 G/DL (3.4-5.0); ALBUMIN/GLOBULIN RATIO 0.8 (1.1-1.5); ALKALINE PHOSPHATASE 64 IU/L (46-116); ANION GAP 10 (8-16); ASPARTATE AMINO TRANSFERASE 697 U/L (10-37); BILIRUBIN,TOTAL 0.7 MG/DL (0.1-1.0); BLOOD UREA NITROGEN 18 MG/DL (7-18); BUN/CREATININE RATIO 14.2 (10.0-20.0); CALCIUM 7.4 MG/DL (8.5-10.1); CHLORIDE 109 MMOL/L (99-107); CREATININE 1.27 MG/DL (0.40-0.90); GLUCOSE 246 MG/DL (70-104); PHOSPHORUS 2.5 MG/DL (2.3-4.5); POTASSIUM 3.2 MMOL/L (3.5-5.1); PREALBUMIN 4.1 MG/DL (19-36); SODIUM 141 MMOL/L (135-145); TOTAL PROTEIN 4.7 G/DL (6.4-8.2); eCRCL 41 ML/MIN; eGFR 42 ML/MIN
[2024-04-29] MEDS: potassium Cl 40MEQ/270ML bag 270 ML IV PRN (04:34)
[2024-04-29 07:22] LABS: ABG BASE EXCESS -7.4 mmol/L (-2.0-3.0); ABG HCO3 19.9 mmol/L (21.0-28.0); ABG OXYGEN SATURATION 98.6 % (94.0-98.0); ABG PCO2 (T) 47.3 mmHg (32.0-45.0); ABG PO2 (T) 135.6 mmHg (83.0-108.0); ALLEN'S TEST POSITIVE; FHHb 1.4 % (0.0-5.0); FMetHb 0.3 % (0.0-1.5); FO2Hb 98.3 % (94.0-98.0); MODE VENT - AC/PRVC; PATIENT TEMPERATURE 36.9; PEEP 10 cm H2O; RESPIRATORY RATE 24 b/min; TIDAL VOLUME 350 mL; TOTAL HEMOGLOBIN 11.5 G/dl (12.0-16.0)
[2024-04-29] MEDS: insulin regular, human U-100 10ml vial - multi-dose SQ SCH (14:41)
[2024-04-29 15:40] LABS: ABG BASE EXCESS -6.2 mmol/L (-2.0-3.0); ABG HCO3 18.2 mmol/L (21.0-28.0); ABG OXYGEN SATURATION 90.4 % (94.0-98.0); ABG PCO2 (T) 32.4 mmHg (32.0-45.0); ABG PH (T) 7.367 (7.350-7.450); ABG PO2 (T) 57.6 mmHg (83.0-108.0); FCOHb 0.2 % (0.5-1.5); FHHb 9.6 % (0.0-5.0); FMetHb 0.3 % (0.0-1.5); FO2Hb 89.9 % (94.0-98.0); MODE VENT - AC/PRVC; PEEP 10 cm H2O; RESPIRATORY RATE 24 b/min; TIDAL VOLUME 425 mL; TOTAL HEMOGLOBIN 11.1 G/dl (12.0-16.0)
[2024-04-29] MEDS: MEROPENEM 1GM/NACL 50ML IVPB 50 ML IV SCH (21:56)
[2024-04-30] VITALS (22 sets, daily range): BP systolic 83–115; BP diastolic 48–63; PULSE 121–127; RESP 16–26; O2SAT 89–97
[2024-04-30] MEDS: magnesium hydroxide 30ml (MOM) UD suspension PO PRN (01:56)
[2024-04-30 03:09] LABS: BASOPHILS % (AUTO) 0.1 % (0-1); HEMOGLOBIN 10.3 g/dl (12.0-16.0)
[2024-04-30 03:12] LABS: EOSINOPHILS % (AUTO) 0 % (0-6); HEMATOCRIT 29.9 % (35.0-45.0); LYMPHOCYTES # (AUTO) 0.7 X10'3 (1.1-4.8); LYMPHOCYTES % (AUTO) 5.1 % (21-51); MEAN CORPUSCULAR HEMOGLOBIN 32.7 PG (27.0-31.0); MEAN CORPUSCULAR HGB CONC 34.5 g/dL (33.0-36.5); MEAN CORPUSCULAR VOLUME 94.9 FL (78-98); MEAN PLATELET VOLUME 11.8 FL (7.4-10.4); MONOCYTES # (AUTO) 1.1 X10'3 (0-0.9); MONOCYTES % (AUTO) 8.2 % (2-12); NEUTROPHILS % (AUTO) 86.6 % (42-75); PLATELET COUNT 77 X10'3 (140-440); RED BLOOD COUNT 3.16 X10'6 (4.20-5.60); RED CELL DISTRIBUTION WIDTH 16.2 % (11.5-14.5); WHITE BLOOD COUNT 13.9 X10'3 (4.5-11.0)
[2024-04-30 03:38] LABS: ALANINE AMINOTRANSFERASE 303 U/L (12-78); ALBUMIN 2.1 G/DL (3.4-5.0); ALBUMIN/GLOBULIN RATIO 0.8 (1.1-1.5); ALKALINE PHOSPHATASE 74 IU/L (46-116); ANION GAP 11 (8-16); ASPARTATE AMINO TRANSFERASE 992 U/L (10-37); BILIRUBIN,TOTAL 1.3 MG/DL (0.1-1.0); BLOOD UREA NITROGEN 34 MG/DL (7-18); BUN/CREATININE RATIO 26.4 (10.0-20.0); CALCIUM 7.3 MG/DL (8.5-10.1); CHLORIDE 109 MMOL/L (99-107); CREATININE 1.29 MG/DL (0.40-0.90); GLUCOSE 281 MG/DL (70-104); MAGNESIUM 2.1 MG/DL (1.5-2.4); PHOSPHORUS 1.9 MG/DL (2.3-4.5); SODIUM 140 MMOL/L (135-145); TOTAL PROTEIN 4.7 G/DL (6.4-8.2); TRIGLYCERIDES 128 MG/DL (20-135); eCRCL 40 ML/MIN; eGFR 42 ML/MIN
[2024-04-30 03:53] LABS: POTASSIUM 3.9 MMOL/L (3.5-5.1)
[2024-04-30 04:00] LABS: ABG HCO3 18.1 mmol/L (21.0-28.0); ABG OXYGEN SATURATION 94.1 % (94.0-98.0); ABG PCO2 (T) 35.1 mmHg (32.0-45.0); ABG PO2 (T) 76.9 mmHg (83.0-108.0); FCOHb 0.1 % (0.5-1.5); FHHb 5.9 % (0.0-5.0); FMetHb 0.3 % (0.0-1.5); FO2Hb 93.7 % (94.0-98.0); MODE VENT - prvc; PATIENT TEMPERATURE 37.2; PEEP 10 cm H2O; RESPIRATORY RATE 24 b/min; TIDAL VOLUME 425 mL; TOTAL HEMOGLOBIN 10.8 G/dl (12.0-16.0)
[2024-04-30 09:17] LABS: ALLEN'S TEST YES
[2024-04-30 09:18] LABS: MODE PRVC/AC; PATIENT TEMPERATURE 36.8; TIDAL VOLUME 350 mL
[2024-04-30 09:19] LABS: ABG PCO2 (T) 40.3 mmHg (32.0-45.0); ABG PH (T) 7.264 (7.350-7.450); ABG PO2 (T) 56.6 mmHg (83.0-108.0); PEEP 5 cm H2O
[2024-04-30 09:20] LABS: ABG BASE EXCESS -8.4 mmol/L (-2.0-3.0); FCOHb 0.4 % (0.5-1.5); FMetHb 0.3 % (0.0-1.5); FO2Hb 87.3 % (94.0-98.0); TOTAL HEMOGLOBIN 11.6 G/dl (12.0-16.0)
[2024-04-30 09:21] LABS: ABG OXYGEN SATURATION 87.9 % (94.0-98.0)
[2024-04-30] MEDS: insulin regular, human U-100 10ml vial - multi-dose SQ SCH (09:52)
[2024-04-30] MEDS: LORazepam 2 mg/ml vial IV PRN (13:34)
== END 2024-04-30 15:43 | DRG 853 ==
LOC: ER 19:32 → ED HOLD 04-21 00:39 → ORTHO 4S 04-21 11:26 → PCU 3S 04-22 23:50 → CICU 2S 04-27 10:05
PROVIDERS: ADMIT Surgery; ATTEND Internal Medicine
PROC: BT1F1ZZ Fluoroscopy of Left Kidney, Ureter and Bladder using Low Osmolar Contrast (ICD-10-PCS; 2024-04-21)
PROC: 0T778DZ Dilation of Left Ureter with Intraluminal Device, Via Natural or Artificial Opening Endoscopic (ICD-10-PCS; principal; 2024-04-21 16:44)
PROC: BW251ZZ Computerized Tomography (CT Scan) of Chest, Abdomen and Pelvis using Low Osmolar Contrast (ICD-10-PCS; 2024-04-24)
PROC: 5A1945Z Respiratory Ventilation, 24-96 Consecutive Hours (ICD-10-PCS; 2024-04-27)
PROC: 0BH17EZ Insertion of Endotracheal Airway into Trachea, Via Natural or Artificial Opening (ICD-10-PCS; 2024-04-27)
PROC: 02HV33Z Insertion of Infusion Device into Superior Vena Cava, Percutaneous Approach (ICD-10-PCS; 2024-04-27)
PROC: B548ZZA Ultrasonography of Superior Vena Cava, Guidance (ICD-10-PCS; 2024-04-27)
DX: A41.9 Sepsis, unspecified organism (principal); E43 Unspecified severe protein-calorie malnutrition; R65.21 Severe sepsis with septic shock; G93.41 Metabolic encephalopathy; J18.9 Pneumonia, unspecified organism; J96.21 Acute and chronic respiratory failure with hypoxia; E87.20 Acidosis, unspecified; N17.9 Acute kidney failure, unspecified; N13.6 Pyonephrosis; F32.A Depression, unspecified; F41.9 Anxiety disorder, unspecified; D50.8 Other iron deficiency anemias; E87.6 Hypokalemia; E16.1 Other hypoglycemia; Z85.038 Personal history of other malignant neoplasm of large intestine; Z90.710 Acquired absence of both cervix and uterus; Z88.1 Allergy status to other antibiotic agents; Z90.49 Acquired absence of other specified parts of digestive tract; Z87.891 Personal history of nicotine dependence; Z88.2 Allergy status to sulfonamides; Z79.899 Other long term (current) drug therapy; Z68.27 Body mass index [BMI] 27.0-27.9, adult
CPT/HCPCS: 36410; 36415; 36600; 70450; 70551; 71045; 71260; 74018; 74177; 76000; 80048; 80053; 80202; 80305; 81001; 82803; 82948; 83605; 83690; 83735; 83880; 84100; 84132; 84134; 84145; 84478; 85018; 85025; 85610; 85651; 85730; 87040; 87070; 87081; 87088; 92508; 92616; 93005; 93308; 93971; 94002; 94003; 94640; 94760; 97110; 97163; 99285; A4314; A4615; A4618; A4620; A5200; A6213; A6223; A6250; A6258; A6449; A7015; A9900; C1758; C1769; C2617; G0378; J0690; J0696; J1644; J1650; J1815; J1940; J2060; J2185; J2250; J2270; J2371; J2405; J2470; J2704; J2765; J2919; J3010; J3370; J3372; J3475; J3480; J3486; J3490; J7030; J7040; J7050; J7070; J7120; P9047; Q9967